=== PATIENT | female | born 1965 | race Two or more races ===

== ENCOUNTER 2018-04-14 08:10 | Outpatient (CLI) | payer OTHER | END 2018-04-14 08:29 | disposition home or self-care (01) | LOC: MAMO-SONO 08:10 | DX: Z12.31 Encounter for screening mammogram for malignant neoplasm of breast (principal); Z00.00 Encounter for general adult medical examination without abnormal findings; N64.89 Other specified disorders of breast ==

== ENCOUNTER → 2018-04-14 | Outpatient (CLI) | payer OTHER ==
[~2018-04-14] MED LIST: INTESTINEX680 MG PO; ZANTAC150 MG PO
== END | disposition home or self-care (01) ==
LOC: LAB 07:16
DX: Z00.00 Encounter for general adult medical examination without abnormal findings (principal); Z13.220 Encounter for screening for lipoid disorders; Z13.89 Encounter for screening for other disorder; Z12.31 Encounter for screening mammogram for malignant neoplasm of breast; Z11.3 Encounter for screening for infections with a predominantly sexual mode of transmission

== ENCOUNTER 2019-06-10 11:23 | Outpatient (CLI) | payer OTHER | END 2019-06-10 11:25 | disposition home or self-care (01) | LOC: RAD 11:23 | DX: M25.562 Pain in left knee (principal) ==

== ENCOUNTER 2020-12-03 09:23 | Outpatient (CLI) | payer OTHER | END 2020-12-03 09:44 | disposition home or self-care (01) | LOC: LAB 09:23 | PROVIDERS: ATTEND General Practice | DX: Z00.01 Encounter for general adult medical examination with abnormal findings (principal); M62.830 Muscle spasm of back; Z12.31 Encounter for screening mammogram for malignant neoplasm of breast; Z12.4 Encounter for screening for malignant neoplasm of cervix; Z12.11 Encounter for screening for malignant neoplasm of colon; Z13.228 Encounter for screening for other metabolic disorders; Z13.220 Encounter for screening for lipoid disorders; Z11.3 Encounter for screening for infections with a predominantly sexual mode of transmission; Z11.4 Encounter for screening for human immunodeficiency virus [HIV]; Z11.9 Encounter for screening for infectious and parasitic diseases, unspecified; I10 Essential (primary) hypertension; Z76.0 Encounter for issue of repeat prescription ==

== ENCOUNTER 2020-12-04 10:12 | Outpatient (CLI) | payer OTHER | END 2020-12-04 10:20 | disposition home or self-care (01) | LOC: LAB 10:12 | PROVIDERS: ATTEND General Practice | DX: M62.830 Muscle spasm of back (principal); Z00.01 Encounter for general adult medical examination with abnormal findings; Z12.31 Encounter for screening mammogram for malignant neoplasm of breast; Z12.4 Encounter for screening for malignant neoplasm of cervix; Z12.11 Encounter for screening for malignant neoplasm of colon; Z13.228 Encounter for screening for other metabolic disorders; Z13.220 Encounter for screening for lipoid disorders; I10 Essential (primary) hypertension; Z76.0 Encounter for issue of repeat prescription; Z13.1 Encounter for screening for diabetes mellitus ==

== ENCOUNTER 2020-12-17 10:23 | Outpatient (CLI) | payer OTHER | END 2020-12-17 10:43 | disposition home or self-care (01) | LOC: MAMO-SONO 10:23 | PROVIDERS: ATTEND General Practice | DX: N64.4 Mastodynia (principal); M62.830 Muscle spasm of back; Z00.01 Encounter for general adult medical examination with abnormal findings ==

== ENCOUNTER 2022-09-03 08:28 | Outpatient (CLI) | payer OTHER | END 2022-09-03 08:52 | disposition home or self-care (01) | LOC: MAMO-SONO 08:28 | PROVIDERS: ATTEND Specialist | DX: Z12.31 Encounter for screening mammogram for malignant neoplasm of breast (principal); N63.0 Unspecified lump in unspecified breast; D25.9 Leiomyoma of uterus, unspecified ==

== ENCOUNTER 2022-10-09 09:53 | Outpatient (CLI) | payer OTHER | END 2022-10-09 10:16 | disposition home or self-care (01) | LOC: SONOGRAMA 09:53 | PROVIDERS: ATTEND Pathology Anatomic Pathology & Clinical Pathology | DX: N60.92 Unspecified benign mammary dysplasia of left breast (principal); N63.0 Unspecified lump in unspecified breast ==

== ENCOUNTER → 2022-12-11 08:05 | Outpatient (CLI) | payer OTHER | END | disposition home or self-care (01) | LOC: LAB 08:05 | PROVIDERS: ATTEND General Practice | DX: E03.9 Hypothyroidism, unspecified (principal); N39.0 Urinary tract infection, site not specified; R80.9 Proteinuria, unspecified; I10 Essential (primary) hypertension; Z11.1 Encounter for screening for respiratory tuberculosis; Z11.3 Encounter for screening for infections with a predominantly sexual mode of transmission; Z11.4 Encounter for screening for human immunodeficiency virus [HIV]; Z12.11 Encounter for screening for malignant neoplasm of colon; Z12.4 Encounter for screening for malignant neoplasm of cervix; Z13.0 Encounter for screening for diseases of the blood and blood-forming organs and certain disorders involving the immune mechanism; Z13.1 Encounter for screening for diabetes mellitus; Z13.29 Encounter for screening for other suspected endocrine disorder; Z13.220 Encounter for screening for lipoid disorders; Z13.228 Encounter for screening for other metabolic disorders; E78.2 Mixed hyperlipidemia ==

== ENCOUNTER 2022-12-15 12:34 | Outpatient (CLI) | payer OTHER | END 2022-12-15 23:00 | disposition home or self-care (01) | LOC: LAB 12:34 | PROVIDERS: ATTEND General Practice | DX: Z11.1 Encounter for screening for respiratory tuberculosis (principal); Z11.3 Encounter for screening for infections with a predominantly sexual mode of transmission; Z11.4 Encounter for screening for human immunodeficiency virus [HIV]; Z12.11 Encounter for screening for malignant neoplasm of colon; Z12.4 Encounter for screening for malignant neoplasm of cervix; Z13.0 Encounter for screening for diseases of the blood and blood-forming organs and certain disorders involving the immune mechanism; Z13.1 Encounter for screening for diabetes mellitus; Z13.29 Encounter for screening for other suspected endocrine disorder; Z13.220 Encounter for screening for lipoid disorders; Z13.228 Encounter for screening for other metabolic disorders; E78.2 Mixed hyperlipidemia ==

== ENCOUNTER 2024-03-24 07:23 | Outpatient (CLI) | payer OTHER | END 2024-03-24 07:43 | disposition home or self-care (01) | LOC: MRI 07:23 | PROVIDERS: ATTEND General Practice | DX: N64.9 Disorder of breast, unspecified (principal); Z12.39 Encounter for other screening for malignant neoplasm of breast; Z12.31 Encounter for screening mammogram for malignant neoplasm of breast; I10 Essential (primary) hypertension; G89.29 Other chronic pain; M25.562 Pain in left knee | CPT/HCPCS: 73721 ==

== ENCOUNTER 2024-03-24 09:02 | Outpatient (CLI) | payer OTHER ==
[2024-03-24 10:00] LABS: HEMATOCRIT 43.9 % (36.0-45.00); HEMOGLOBIN 14.6 g/dL (12.0-15.00); MEAN CELL VOLUME 88.8 fL (80.00-100.00); MEAN CORPUSCULAR HEMOGLOBIN 29.6 pg (27.00-32.0); MEAN CORPUSCULAR HGB CONC 33.3 g/dl (32.0-36.0); PLATELET COUNT 214 K/uL (150-450); RED BLOOD COUNT 4.94 M/uL (4.00-6.00); RED CELL DISTRIBUTION WIDTH 14.3 % (11.5-14.5)
[2024-03-24 10:01] LABS: PH,URINE 5.5 (5.0-8.0); URINE APPEARANCE Clear; URINE BILIRRUBIN Negative (NEGATIVE); URINE BLOOD Large; URINE COLOR Yellow; URINE GLUCOSE Negative (NEGATIVE); URINE LEUKOCYTE Negative; URINE NITRATE Negative; URINE PROTEIN Negative (NEGATIVE); URINE UROBILINOGEN 0.2 E.U./dl
[2024-03-24 10:06] LABS: URINE BACTERIA 293.5 uL (0.0-1933); URINE EPITHELIAL CELLS 10.1 uL (0.0-38.8); URINE RBC 107.6 uL (0.0-20.8); URINE WBC 6.9 uL (0.0-23.2)
[2024-03-24 11:02] LABS: ALBUMIN 3.8 gm/dL (3.4-5.0); BILIRUBIN TOTAL 0.56 mg/dL (0.3-1.2); CALCIUM 9.1 mg/dL (8.5-10.1); CHOL HDL RATIO 2.8 (0-5.0); CREATININE SERUM 0.62 mg/dL (0.55-1.02); GFR 99.57; GLOBULINA 3.8 G/DL (2.4-3.5); POTASSIUM 4.48 mEq/L (3.5-5.1); T4 FREE 0.98 NG/ML (0.76-1.46); TOTAL PROTEIN 7.6 gm/dL (6.4-8.2); TSH 1.39 uIU/mL (0.358-3.74)
== END 2024-03-24 09:15 | disposition home or self-care (01) ==
LOC: LAB 09:02
PROVIDERS: ATTEND General Practice
DX: G89.29 Other chronic pain (principal); I10 Essential (primary) hypertension; M25.562 Pain in left knee; Z13.220 Encounter for screening for lipoid disorders; Z13.228 Encounter for screening for other metabolic disorders; Z12.11 Encounter for screening for malignant neoplasm of colon; Z12.31 Encounter for screening mammogram for malignant neoplasm of breast; Z12.39 Encounter for other screening for malignant neoplasm of breast; N64.9 Disorder of breast, unspecified

== ENCOUNTER 2024-03-25 08:40 | Outpatient (CLI) | payer OTHER ==
[2024-03-25 09:56] LABS: ob NEGATIVE (NEGATIVE)
== END 2024-03-25 08:42 | disposition home or self-care (01) ==
LOC: LAB 08:40
PROVIDERS: ATTEND General Practice
DX: G89.29 Other chronic pain (principal); I10 Essential (primary) hypertension; M25.562 Pain in left knee; Z13.220 Encounter for screening for lipoid disorders; Z13.228 Encounter for screening for other metabolic disorders; Z12.11 Encounter for screening for malignant neoplasm of colon; Z12.31 Encounter for screening mammogram for malignant neoplasm of breast; Z12.39 Encounter for other screening for malignant neoplasm of breast; D64.9 Anemia, unspecified

== ENCOUNTER 2024-03-31 09:57 | Outpatient (CLI) | payer OTHER | END 2024-03-31 09:58 | disposition home or self-care (01) | LOC: NUCLEAR 09:57 | PROVIDERS: ATTEND General Practice | DX: I83.813 Varicose veins of bilateral lower extremities with pain (principal); G89.29 Other chronic pain; M79.605 Pain in left leg; M79.604 Pain in right leg; I10 Essential (primary) hypertension ==

== ENCOUNTER 2024-04-21 07:08 | Outpatient (CLI) | payer OTHER | END 2024-04-21 07:36 | disposition home or self-care (01) | LOC: RAD 07:08 | PROVIDERS: ATTEND Orthopaedic Surgery | DX: R07.9 Chest pain, unspecified (principal) ==

== ENCOUNTER 2024-06-23 07:24 | Outpatient (CLI) | payer OTHER | END 2024-06-23 07:30 | disposition home or self-care (01) | LOC: SONOGRAMA 07:24 | PROVIDERS: ATTEND Specialist | DX: D25.9 Leiomyoma of uterus, unspecified (principal) ==

== ENCOUNTER 2025-08-29 08:54 | Outpatient (CLI) | payer OTHER ==
[~2025-08-29 08:54] MED LIST changes: +DICLOFENAC EPO1 EACH TD; +NABUMETONE750 MG PO; +VOLTAREN ARTHRI20 GM TOP
[2025-08-29 09:57] LABS: BASO % 0.4 % (0.1-1.2); EOS # 0.10 (0.04-0.54); EOS % 1.3 % (0.7-7.0); LYMPH # 1.68 (1.18-3.74); LYMPH % 21.2 % (19.3-53.1); MEAN PLATELET VOLUME 10.10 fl (9.4-12.4); MONO # 0.52 (0.24-0.82); MONO % 6.6 % (4.7-12.5); NEUT # 5.56 (1.56-6.13); NEUT % 70.0 % (34.0-71.1); RED CELL DISTRIBUTION WIDTH 14.7 % (11.6-14.4)
[2025-08-29 10:02] LABS: URINE APPEARANCE Clear; URINE BILIRRUBIN Negative (NEGATIVE); URINE BLOOD Large; URINE COLOR Yellow; URINE GLUCOSE Negative (NEGATIVE); URINE KETONE Negative (NEGATIVE); URINE LEUKOCYTE Negative; URINE NITRATE Negative; URINE PROTEIN Negative (NEGATIVE); URINE UROBILINOGEN 0.2 E.U./dl
[2025-08-29 10:05] LABS: URINE BACTERIA 194.4 uL (0.0-1933); URINE EPITHELIAL CELLS 14.0 uL (0.0-38.8); URINE RBC 222.1 uL (0.0-20.8); URINE WBC 4.4 uL (0.0-23.2)
[2025-08-29 10:40] LABS: URINE CAST 0.28 uL (0.0-1.40)
[2025-08-29 10:49] LABS: ALT/SGPT 20.0 U/L (12-78); AST/SGOT 15.0 U/L (15-37); BILIRUBIN TOTAL 0.53 mg/dL (0.3-1.2); BUN CREA RATIO 20.0 (7.0-25.0); CHOL HDL RATIO 2.5 (0-5.0); CREATININE SERUM 0.51 mg/dL (0.55-1.02); GFR 123.86; GLOBULINA 3.5 G/DL (2.4-3.5); GLUCOSE FASTING 93.0 mg/dL (65-100); HDL 67.0 mg/dl (40-60); LDL 83.0 mg/dl (0-130); OSMOLALITY SERUM 280.0 MOSM/KG (275-295); TSH 1.42 uIU/mL (0.358-3.74); VLDL 19.0 (0-39)
[2025-08-29 11:31] LABS: VITAMIN D3 25 HYDROXY 26.07 ng/ml (30-120)
== END 2025-08-29 09:06 | disposition home or self-care (01) ==
LOC: LAB 08:54
DX: D50.8 Other iron deficiency anemias (principal); Z11.3 Encounter for screening for infections with a predominantly sexual mode of transmission; Z12.39 Encounter for other screening for malignant neoplasm of breast; E78.5 Hyperlipidemia, unspecified; Z13.228 Encounter for screening for other metabolic disorders; R51.9 Headache, unspecified; I10 Essential (primary) hypertension; M25.562 Pain in left knee; Z13.220 Encounter for screening for lipoid disorders; H65.02 Acute serous otitis media, left ear; Z12.11 Encounter for screening for malignant neoplasm of colon; E08.9 Diabetes mellitus due to underlying condition without complications; N39.0 Urinary tract infection, site not specified; Z13.89 Encounter for screening for other disorder; D50.9 Iron deficiency anemia, unspecified; Z11.9 Encounter for screening for infectious and parasitic diseases, unspecified; M62.830 Muscle spasm of back; E55.9 Vitamin D deficiency, unspecified; Z12.31 Encounter for screening mammogram for malignant neoplasm of breast; J10.1 Influenza due to other identified influenza virus with other respiratory manifestations; M77.31 Calcaneal spur, right foot; R50.9 Fever, unspecified; D51.9 Vitamin B12 deficiency anemia, unspecified; Z00.00 Encounter for general adult medical examination without abnormal findings; Z11.4 Encounter for screening for human immunodeficiency virus [HIV]; Z12.4 Encounter for screening for malignant neoplasm of cervix; B34.9 Viral infection, unspecified; S74.02XA Injury of sciatic nerve at hip and thigh level, left leg, initial encounter; M54.51 Vertebrogenic low back pain; M25.552 Pain in left hip; M54.50 Low back pain, unspecified; M70.62 Trochanteric bursitis, left hip; M79.652 Pain in left thigh; Z13.21 Encounter for screening for nutritional disorder; Z11.59 Encounter for screening for other viral diseases; Z11.7 Encounter for testing for latent tuberculosis infection; Z11.1 Encounter for screening for respiratory tuberculosis; Z13.29 Encounter for screening for other suspected endocrine disorder; Z13.0 Encounter for screening for diseases of the blood and blood-forming organs and certain disorders involving the immune mechanism; N64.9 Disorder of breast, unspecified; G89.29 Other chronic pain; R31.9 Hematuria, unspecified; M25.531 Pain in right wrist; M25.532 Pain in left wrist; M79.642 Pain in left hand; M23.222 Derangement of posterior horn of medial meniscus due to old tear or injury, left knee; N93.9 Abnormal uterine and vaginal bleeding, unspecified